=== PATIENT | male | born 2000 | race Caucasian/White ===

== ENCOUNTER 2021-06-13 22:47 | Emergency (ER) | payer OTHER ==
[~2021-06-13] VITALS: Ht 182.9 cm; Wt 104.5 kg
--- NOTE | 2021-06-13 23:12 | PHYS DOC ---
Adult General Chief Complaint Chief Complaint: KNEE INJURY HPI HPI The patient is a 21-year-old male who is otherwise healthy. 1 week ago he had a left patellar dislocation during a lacrosse game. This was reduced on the field by an software trainer and he then went to a hospital where a knee immobilizer was applied. Today he had an MRI of the knee and the radiologist called him and let him know that he saw "a spot" to the posterior aspect of the knee which he was concerned might be a DVT. He instructed the patient to present to the emergency department to get a venous Doppler ultrasound done. Patient denies complaints, states his knee is generally feeling as well as can be expected after the injury, and states he is wearing his knee immobilizer and using his crutches to stay off the injured leg. He denies any weakness, numbness or tingling to his distal left leg or foot. He denies any shortness of breath or chest pain. Vital signs are appropriate. The patient is in no acute distress. Review of Systems Review of Systems A 12 point review of systems was completed and was negative except where noted in HPI above. Allergies Allergies Allergies Coded Allergies Type Severity Reaction Last Updated Verified No Known Drug Allergies 06/13/21 No Physical Exam Physical Exam 21-year-old male appearing nontoxic and in no acute distress. Head is normocephalic and atraumatic. Neck is supple and nontender. Oropharynx is moist. Lungs are clear to auscultation at all stations. There is a normal S1 and S2 without rubs or gallops and capillary refill is appropriate, less than 2 seconds globally. Abdomen is soft, nontender and nondistended. Skin is warm and dry without cyanosis, clubbing or edema. Psychiatrically, the patient demonstrates appropriate mood and affect and is alert. Evaluation of the left lower extremity is remarkable for mild anterior knee swelling without erythema or tenderness to palpation. Very mild discomfort with ranging at the left knee but patient does have full active and passive range of motion at the left knee. No palpable cords to the popliteal fossa. Left lower extremity is neurovascularly intact distally with strength 5/5, sensation intact light touch in all nerve distributions, patellar, DP and PT pulse 2+, capillary refill less than 2 seconds, foot warm and well-perfused. No dependent peripheral edema distally. No calf tenderness or swelling bilaterally. Homans test is negative bilaterally. Current Patient Data Vital Signs Vital Signs Date Time Temp Pulse Resp B/P (MAP) Pulse Ox O2 Delivery O2 Flow Rate FiO2 06/13/21 22:55 98.9 104 20 146/86 (106) 98 Room Air 98.9 EKG EKG [] Radiology/Procedures Radiology/Procedures EXAMINATION: US DPLX VENOUS EXTREMITY LOWER LT, 06/13/2021 11:51 PM CLINICAL INDICATION: Possible DVT seen on MRI COMPARISON: None Available. PROCEDURE: Multiple grayscale, color Doppler and spectral Doppler sonographic images of The left lower extremity were obtained. FINDINGS: The left common femoral, femoral and popliteal veins are echolucent with normal flow on color Doppler imaging. The veins are fully compressible and show normal phasicity and reaction to augmentation. The posterior tibial and peroneal veins are patent.There is nonocclusive hypoechoic filling defect in a muscular branch off of the posterior tibial vein in the mid calf, possibly the soleus vein. IMPRESSION: Deep venous thrombosis in a muscular vein branch off of the posterior tibial vein, possibly the soleus vein. Electronically signed by: Vandana Fisher MD (06/14/2021 1:27 AM) [facility] DICTATED and SIGNED BY: VANDANA FISHER MD DATE: 06/14/21 0120 Course & Med Decision Making Course & Med Decision Making Vital signs and clinical examination are reassuring. Will order venous Doppler ultrasound as requested. Disposition pending results of that test. 0140: Patient resting comfortably in no acute distress on serial reassessments. Doppler ultrasound study is positive for posterior tibial vein DVT. This is likely provoked clot secondary to the patient's injury a week ago. Will start Mr. Guerrero on Eliquis. He is advised to follow-up very closely with his primary care doctor in the next 2 to 4 days for discussion of next steps in care, and with his orthopedic physician as well, with whom he already has a close follow- up appointment scheduled. Long discussion with patient and family regarding risks and benefits of anticoagulation and all of their questions have been answered. Patient is advised that he should abstain from sports activities when on the blood thinner unless and until he is cleared by his doctors to resume them. He understands that if he feels worse instead of better or develops other new symptoms of concern that he should return to the emergency department immediately for reevaluation. All questions are answered. Dragon Disclaimer Dragon Disclaimer This electronic medical record was generated, in whole or in part, using a voice recognition dictation system. Departure Departure Impression: Primary Impression: Deep vein thrombosis (DVT) of left lower extremity Disposition: HOME / SELF CARE / HOMELESS Condition: STABLE Patient Instructions: Deep Vein Thrombosis Additional Instructions: Follow-up very closely with your primary care doctor in the office in the next 2 to 4 days for a reevaluation of your symptoms and a discussion of next best steps in care. Follow-up very closely with your director of orthopedics as already scheduled as well. Begin taking the Eliquis blood thinner medication twice a day as prescribed. As we discussed, you may not take nonsteroidal anti- inflammatory medications such as ibuprofen, naproxen or meloxicam while you are taking Eliquis. It is safe to take Tylenol for any pain that you may have. Aside from discontinuing use of meloxicam, it is appropriate to continue all other current treatment for your patellar dislocation. You should avoid sports activities while on a blood thinner unless and until cleared to resume them by your doctor. Return to the emergency department right away for worsening symptoms of any kind or with any other new symptoms of concern. Scripts Apixaban (ELIQUIS) 5 Mg Tablet 5 MG PO SEE INSTRUCTIONS for 30 Days, #74 TAB TAKE 10mg (2 pills) twice a day for 7 days. TAKE 5mg (1 pill) twice a day after that. Prov: DYLAN GONZALEZ MD 06/14/21 Problem Qualifiers Primary Impression: Deep vein thrombosis (DVT) of left lower extremity Affected thrombotic vein of extremity: tibial Chronicity: acute Qualified Codes: I82.442 - Acute embolism and thrombosis of left tibial vein DYLAN GONZALEZ MD Jun 13, 2021 23:12
--- NOTE | 2021-06-14 01:30 | RAD ---
EXAMINATION: US DPLX VENOUS EXTREMITY LOWER LT, 06/13/2021 11:51 PM CLINICAL INDICATION: Possible DVT seen on MRI COMPARISON: None Available. PROCEDURE: Multiple grayscale, color Doppler and spectral Doppler sonographic images of The left lowe r extremity were obtained. FINDINGS: The left common femoral, femoral and popliteal veins are echolucent with normal flow on col or Doppler imaging. The veins are fully compressible and show normal phasicity and reaction to augmen tation. The posterior tibial and peroneal veins are patent.There is nonocclusive hypoechoic filling d efect in a muscular branch off of the posterior tibial vein in the mid calf, possibly the soleus vein . IMPRESSION: Deep venous thrombosis in a muscular vein branch off of the posterior tibial vein, possib ly the soleus vein. Electronically signed by: Vandana Fisher MD (06/14/2021 1:27 AM) [facility]
[2021-06-14] MEDS ORDERED: APIXABAN 5 MG TABLET. PO ONE (01:45)
[2021-06-14] MEDS ORDERED: APIX5TAB PO (02:00)
[2021-06-14 02:10] VITALS: BP 131/68
== END 2021-06-14 02:21 | disposition home or self-care (01) ==
LOC: ER 22:47
DX: I82.402 Acute embolism and thrombosis of unspecified deep veins of left lower extremity (principal)
CPT/HCPCS: 93971; 99284